=== PATIENT | female | born 1950 | race Caucasian/White ===

== ENCOUNTER 2016-05-21 10:23 | Observation (INO) | payer BC, OTHER ==
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
--- NOTE | ~2016-05-21 | HP ---
History And Physical [place] [id number] [facility] [place]. [address] NAME: DONNY ROJAS : 46 STATUS : ADM Jhonny PAT#: [id number] AGE: 66 ADM/REG DATE : 05/21/16 MR#: [id number] REPORT SERV DATE: 05/22/16 DICTATED BY: GERMAN SANDERS DATE: 05/21/16 REPORT STATUS : Draft TRANSCRIBED BY: LIANG DATE: 05/21/16 DATE OF ADMISSION: 05/21/2016 CHIEF COMPLAINT: Hallucinations, seeing bugs. 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 Also, history of obstructive sleep apnea, intolerant of CPAP, but using a mouthpiece, and also history of chronic migraines. According to the patient, she was started on verapamil in December 2015 by her primary care for her ongoing migraine headaches which has helped for her morning migraine symptoms. Also, the patient was started on trazodone at night time to allow her to sleep by primary care. However, over the past five days, the patient began seeing bugs, for which she states that she would see bugs flying around her head, occasionally seen in her hair, and usually it is associated with a headache. The patient states that she has started seeing the bugs, her headaches have become slightly worse, and most of the time can see most of the bugs after her right eye rather than the left and is intermittent. She denies any subjective fever or chills. No chest pain. No shortness of breath. No generalized weakness. No neuro focal deficits. She called her primary care physician the following day after the initial presentation of the bugs and was informed that she was having hallucinations and was referred to come to the emergency department, for which the patient came several days later. She lives at home with her who initially was at her bedside, but currently went home because he cannot drive at night time or in the dark. The patient denies any cough. No shortness of breath. No imbalance of gait. No dizziness. No lightheadedness. She is able to speak in full sentences. The patient states other new medications are [id number] vitamins such as vitamin B12 and calcium, multivitamins. REVIEW OF SYSTEMS: Positive intermittent headaches that have progressed slightly. No new weaknesses. No generalized weakness. No subjective fever or chills. No nausea or vomiting. No shortness of breath. No chest pain. No abdominal pain. No diarrhea. No constipation. No new rashes. PAST MEDICAL HISTORY: CVA with left hippocampus area in November 2015; chronic migraine headaches, on verapamil; obstructive sleep apnea, using the mouth piece; degenerative joint disease; GERD; and depression. PAST SURGICAL HISTORY: Hysterectomy. SOCIAL HISTORY: No tobacco, alcohol, or illicit drugs. 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 FAMILY HISTORY: Dementia and LA. ALLERGIES: TO CODEINE, KEEPS HER AWAKE, WHICH IS MORE SO AN ADVERSE REACTION. HOME MEDICATIONS: Adderall 20 mg p.o. b.i.d., chronically using this medication; aspirin 81 History And Physical [address] [address] NAME: DONNY ROJAS : 46 STATUS : ADM Jhonny PAT#: [id number] AGE: 66 ADM/REG DATE : 05/21/16 MR#: [id number] REPORT SERV DATE: 05/22/16 DICTATED BY: GERMAN SANDERS DATE: 05/21/16 REPORT STATUS : Draft TRANSCRIBED BY: LIANG DATE: 05/21/16 mg p.o. q.a.m.; cholecalciferol; Klonopin 0.5 to 1 mg p.o. at bedtime p.r.n. anxiety; vitamin B12 of 1000 mcg p.o. q.a.m., Maria L 180 mg p.o. q.a.m.; Paxil 20 mg p.o. q.a.m.; salmon oil/black currant seed, trazodone 50 mg p.o. at bedtime, calcium, magnesium, zinc supplement, Aicha-Plus, Claritin p.r.n. verapamil ER 120 mg p.o. at bedtime. PHYSICAL EXAMINATION: VITAL SIGNS: Temp is 98.7, blood pressure 121/80 with a pulse of 68, respirations 16, and saturating 97% on room air. GENERAL: The patient is alert and oriented x3. Very pleasant, in no distress. Moving well. Gets up and down from the bed without any difficulty. HEENT: Pupils are equal, round, and reactive to light. Extraocular muscles are intact. Moist mucous membranes. NEURO: Cranial nerves II through XII grossly intact. Moves all four extremities with 5/5 upper and lower extremities strength bilaterally. Gait is normal. Pupils equal, round, and reactive to light. Extraocular muscles are intact. No appreciated visual deficits. CARDIOVASCULAR: S1, S2. Regular rate and rhythm. No murmurs, rubs, or gallops. There is no JVD. RESPIRATORY: Clear to auscultation bilaterally. No wheezes. No crackles. No signs of tachypnea. ABDOMEN: Positive bowel sounds. Soft, nontender. No rebound. No fluid wave. No distention. EXTREMITIES: 2+ pulse bilaterally. No edema. LABORATORY DATA: Sodium 140, potassium 3.8, chloride 106, bicarb of 26, BUN of 13, creatinine is 0.85, glucose of 92. Albumin of 3.6, T bilirubin of 0.3, alkaline phosphatase 99, ALT of 25, AST of 18. Troponin less than 0.02. BNP of 33.1. White count of 4.9, hemoglobin of 13.4, platelet count 231. INR is pending. UA with a specific gravity 1.006, pH of 7, negative blood, negative leukocyte esterase, negative nitrites, 0 white blood cells, 0 red blood cells. Urine drug screen positive for amphetamines secondary to Adderall. Serum labs negative alcohol, less than 2.0 Tylenol, less than 1.7 salicylate. ASSESSMENT AND PLAN: Suspected migraine with aura. CT of the brain ordered by ER physician, Dr. Thomson is currently pending, and considering the patient has a history of cerebrovascular accident in the past, we will continue with neuro checks. I expect 23-hour observation. We will follow up with pending labs. Also, recommend for the patient to consider an outpatient optometry/ophthalmology evaluation. The patient already follows up with Dr. Recinos, chrome worker as an outpatient. We will continue to closely monitor. DIANA/MODL German Sanders M.D. History And Physical [address] [address] NAME: DONNY ROJAS : 46 STATUS : ADM Jhonny PAT#: [id number] AGE: 66 ADM/REG DATE : 05/21/16 MR#: [id number] REPORT SERV DATE: 05/22/16 DICTATED BY: GERMAN SANDERS DATE: 05/21/16 REPORT STATUS : Draft TRANSCRIBED BY: LIANG DATE: 05/21/16 / [id number] CC: Kevin Brink D.O. F.A.C.P. Mark Heinsohn, M.D.
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
--- NOTE | ~2016-05-21 | DS ---
Discharge Summary [facility] [address] [facility] [place]. [address] NAME: DONNY ROJAS : 46 STATUS : DIS Jhonny PAT#: [id number] AGE: 66 ADM/REG DATE : 05/21/16 MR#: [id number] REPORT SERV DATE: 05/23/16 DICTATED BY: GERMAN SANDERS DATE: 05/22/16 REPORT STATUS : Draft TRANSCRIBED BY: LIANG DATE: 05/22/16 ADMISSION DATE: 05/21/2016 DISCHARGE DATE: 05/22/2016 DIAGNOSES: 1. Migraine with aura. 2. Ophthalmic floaters. 3. History of obstructive sleep apnea. FOLLOWUP: The patient is to follow up with her own blanker operator, Dr. Recinos, and also the patient should follow with her primary care physician in one to two weeks and follow up with her sleep study physician for fitting for a pediatric CPAP mask per Neurology recommendations. Also, the patient will follow up with the outpatient psychiatrist/counselor for history of chronic depression. DISCHARGE MEDICATIONS: The patient is to continue with home medications, but also is to hold the herbal salmon oil, VitaPulse, and Claritin. However, the patient may also continue with Tylenol 500 mg p.o. daily eight hours p.r.n. CONSULTANTS: Neurology. HOSPITAL COURSE: Please see H and P dictated. This is a 66 years old female with a past medical history of chronic migraine headaches, on verapamil, as well as untreated obstructive sleep apnea using a mouth piece, also a history of CVA in 2016, and chronic depression, presents initially with a chief complaint of having hallucination of seeing bugs and was referred to the ER by primary care physician. The patient states that most of the occurrences are mostly in the right eye and occur mostly with a headache. She is chronically on verapamil to control her headaches; however lately, she has had more breakthrough migraines. She had no neurologic or focal deficits. No generalized weakness. No mental status changes. She was admitted under observation. ER physician, Dr. Thomson, ordered a CT of the brain that showed no acute findings. The patient was admitted to the Hospitalist Service. Suspected most likely secondary to underlying migraine with aura and also suspected underline ophthalmic issue. The patient denied any eye pain. She had no eye discharge, no eye pain. She was seen by Neurology during her hospital stay, who performed ophthalmologic examination and found some floaters. The patient has been dealing with this for several days. The patient already has an blanker operator and sees Dr. Recinos and will follow up with Dr. Recinos as an outpatient. Also, the MRI was reviewed by the neurologist with no acute findings per Neurology. The patient continued to do well. Vitals remained stable. Verapamil was not increased due to the patient having a low normal blood pressure and heart rate ranging 58 to 65 and stable, asymptomatic. Risk of hypotension and bradycardia increases with increased dose of verapamil. Therefore, the patient will be treated with Tylenol p.r.n. with her current verapamil dose from home. The patient also was educated on following instructions for Tylenol and not to overdo Tylenol dosing. However, the patient states that she will not require Tylenol much at all. Also, recommendations Discharge Summary [address] [place]. [address] NAME: DONNY ROJAS : 46 STATUS : DIS Jhonny PAT#: [id number] AGE: 66 ADM/REG DATE : 05/21/16 MR#: [id number] REPORT SERV DATE: 05/23/16 DICTATED BY: GERMAN SANDERS DATE: 05/22/16 REPORT STATUS : Draft TRANSCRIBED BY: LIANG DATE: 05/22/16 have been explained to the daughter as well. The patient is alert and oriented throughout her hospital course and at discharge, and approved for discharge to home by Neurology as well. Clinically stable. Neurology recommended for the patient to be fitted for a pediatric CPAP mask as an outpatient. [facility]/LIANG German Sanders M.D. / [id number] CC: Kevin Brink D.O. F.A.C.P. Mark Heinsohn, M.D.
[~2016-05-21 10:23] MED LIST: ADDERALL20 MG PO; ASAB PO; KLONO1 PO; NASACORTAQ NAS; PAX20 PO; ZYRTEC ALLGY10 MG PO
[2016-05-21 10:46] LABS: WBC (NOT ORDERED) (RFLEX) 0 (0-5)
[2016-05-21 10:49] LABS: BASOPHILS 0.6 %; BASOPHILS ABSOLUTE 0.03 10/3/uL (0.0-0.16); EOSINOPHILS ABSOLUTE 0.05 10/3/uL (0.0-0.53); HEMATOCRIT 39.4 % (36.0-48.0); HEMOGLOBIN 13.4 g/dL (12.0-16.0); LYMPHOCYTES 29.2 %; LYMPHOCYTES ABSOLUTE 1.43 10/3/uL (0.67-4.30); MEAN CORPUSCULAR HEMOGLOB 29.3 pg (26.0-34.0); MEAN PLATELET VOLUME 9.5 fL (9.2-13.0); MONOCYTES 6.1 %; NEUTROPHILS 63.1 %; NEUTROPHILS ABSOLUTE 3.08 10/3/uL (2.02-8.40); PLATELET COUNT 231 10/3/uL (150-400); RBC DISTRIBUTION WIDTH 12.8 % (12.0-16.0); RED CELL COUNT 4.58 10/6/uL (4.0-5.6); WHITE BLOOD CELLS 4.9 10/3/uL (4.5-10.5)
[2016-05-21 10:52] LABS: ASCORBIC ACID (UR NOT ORDER) NEG (NEG); BILIRUBIN, URINE NEGATIVE (NEG); ER URINALYSIS TAT 0 Hrs 07 Mins; KETONE, URINE NEGATIVE (NEG); LEUKOCYTE ESTERASE(NOT OR NEG (NEG); NITRITE (URINE) NEG (NEG)
[2016-05-21 10:52] LABS: MANUAL DIFF NO %
[2016-05-21 11:07] LABS: A/G RATIO 1.1 (0.7-1.9); ALBUMIN 3.6 G/DL (3.5-5.0); ALKALINE PHOSPHATASE 99 U/L (45-117); BUN (BLOOD UREA NITROGEN) 13 MG/DL (6-23); CALCIUM, SERUM 8.6 MG/DL (8.5-10.4); CHLORIDE, SERUM 106 MMOL/L (96-112); CO2 (CARBON DIOXIDE) 26 MMOL/L (24-34); CREATININE 0.85 MG/DL (0.55-1.02); GFR AFRICAN AMERICAN 82 ML/MIN (>=60); GFR NON AFRICAN AMERICAN 70 ML/MIN (>=60); GLOBULIN 3.4 G/DL (2.5-4.1); GLUCOSE, SERUM 92 MG/DL (60-99); POTASSIUM, SERUM 3.8 MMOL/L (3.5-5.3); SGOT(AST) 18 U/L (5-40); SGPT(ALT) 25 U/L (5-65); SODIUM, SERUM 140 MMOL/L (135-148); TOTAL BILIRUBIN 0.3 MG/DL (0-1.2); TROPONIN I <0.02 NG/ML (<0.05)
[2016-05-21] MEDS ORDERED: CYANO1000T PO (13:31)
[2016-05-21] MEDS ORDERED: CALCIUM, MAG, ZINC PO (13:32)
[2016-05-21] MEDS ORDERED: PAX20 PO (13:33)
[2016-05-21] MEDS ORDERED: KLONO1 PO (13:35)
[2016-05-21] MEDS ORDERED: ADDERALL20 MG PO (13:36)
[2016-05-21] MEDS ORDERED: TRAZ50 PO (13:37)
[2016-05-21] MEDS ORDERED: SAMOLINIC PO (13:37)
[2016-05-21] MEDS ORDERED: VITAPULSE PO (13:39)
[2016-05-21] MEDS ORDERED: ISOPTIN SR120 MG PO (13:40)
[2016-05-21] MEDS ORDERED: D 5000 PO (13:40)
[2016-05-21] MEDS ORDERED: ASAB PO (13:40)
[2016-05-21] MEDS ORDERED: ALLEGRA180 PO (13:41)
[2016-05-21] MEDS ORDERED: [UNRECOGNIZED DRUG - REMARK] NAS (13:42)
[2016-05-21 14:01] LABS: ACETAMINOPHEN LEVEL (TYLENOL) < 2.0 MCG/ML (10.0-20.0); ALCOHOL < 10 MG/DL (0); SALICYLATE < 1.7 MG/DL (-)
[2016-05-21 14:09] LABS: AMPHETAMINES (NOT ORD) POS (NEG); BARBITURATES (NOT ORDERED NEG (NEG); BENZODIAZEPINES (NOT ORD) NEG (NEG); CANNABINOIDS (THC) NEG (NEG); COCAINE (NOT ORDERED) NEG (NEG); OPIATES NEG (NEG); PHENCYCLIDINE(PCP) NEG (NEG); TRICYCLICS NEG (NEG)
[2016-05-22 07:33] LABS: ALBUMIN 3.2 G/DL (3.5-5.0); SGOT(AST) 14 U/L (5-40); SGPT(ALT) 20 U/L (5-65); TOTAL BILIRUBIN 0.3 MG/DL (0-1.2); TOTAL PROTEIN 6.2 G/DL (6.0-8.5)
[2016-05-22 07:34] LABS: ALKALINE PHOSPHATASE 85 U/L (45-117); DIRECT BILIRUBIN < 0.1 MG/DL (0.0-0.4); INDIRECT BILIRUBIN(NOT ORDER) 0.2 MG/DL (0.1-0.9)
[2016-05-22 07:42] LABS: BASOPHILS 1.1 %; BASOPHILS ABSOLUTE 0.05 10/3/uL (0.0-0.16); EOSINOPHILS 2.8 %; EOSINOPHILS ABSOLUTE 0.13 10/3/uL (0.0-0.53); HEMATOCRIT 38.6 % (36.0-48.0); HEMOGLOBIN 12.9 g/dL (12.0-16.0); IMMATURE GRANULOCYTES 0.2 %; IMMATURE GRANULOCYTES ABSOLUTE 0.01 10/3/uL (0.0-0.11); LYMPHOCYTES 35.2 %; LYMPHOCYTES ABSOLUTE 1.64 10/3/uL (0.67-4.30); MEAN CORPUS HGB CONC 33.4 g/dL (32.0-36.0); MEAN CORPUSCULAR HEMOGLOB 29.1 pg (26.0-34.0); MEAN CORPUSCULAR VOLUME 86.9 fL (80-100); MEAN PLATELET VOLUME 9.9 fL (9.2-13.0); MONOCYTES 8.2 %; MONOCYTES ABSOLUTE 0.38 10/3/uL (0.21-1.20); NEUTROPHILS 52.5 %; NEUTROPHILS ABSOLUTE 2.45 10/3/uL (2.02-8.40); PLATELET COUNT 211 10/3/uL (150-400); RBC DISTRIBUTION WIDTH 12.8 % (12.0-16.0); RED CELL COUNT 4.44 10/6/uL (4.0-5.6); WHITE BLOOD CELLS 4.7 10/3/uL (4.5-10.5)
[2016-05-22 07:46] LABS: MANUAL DIFF NO %
[2016-05-22] MEDS ORDERED: TYLENOL 500 MG PO (17:29)
== END 2016-05-22 18:07 | disposition home or self-care (01) ==
LOC: ER 10:23 → 5SO 18:51
PROVIDERS: Emergency Medicine; Internal Medicine
DX: G43.109 Migraine with aura, not intractable, without status migrainosus (principal); H43.399 Other vitreous opacities, unspecified eye; G47.33 Obstructive sleep apnea (adult) (pediatric); F32.9 Major depressive disorder, single episode, unspecified; M51.36 Other intervertebral disc degeneration, lumbar region; Z90.710 Acquired absence of both cervix and uterus; Z86.73 Personal history of transient ischemic attack (TIA), and cerebral infarction without residual deficits; Z88.5 Allergy status to narcotic agent; Z99.81 Dependence on supplemental oxygen
CPT/HCPCS: 70450; 70551; 71020; 80053; 80076; 80305; 80307; 81001; 83880; 84443; 84484; 85025; 87040; 93005; 99291; A9270-GY; G0378